=== PATIENT | female | born 1970 | race Caucasian/White ===

== ENCOUNTER 2022-04-11 10:23 | Emergency (ER) | payer BC, SELFPAY ==
[2022-04-11 10:34] VITALS: BP 146/103; PULSE 77; RESP 18; TEMP 36.8; O2SAT 99
--- NOTE | 2022-04-11 10:42 | ED.EXTPRO ---
HPI - Extremity Problem General Chief complaint: Extremity Problem,Nontraumatic Stated complaint: Rt Great Toe Pain Time Seen by Provider: 04/11/22 10:42 History of Present Illness HPI Narrative: Emilia Augustin is a 52 yo female with no PMH who comes with right great toe pain that started yesterday she has swelling on the solar part of toe, toe is edematous and red. No injury. has no pcp, no hx of gout; no allergies Related Data Home Medications Medication Instructions Recorded Confirmed cetirizine 10 mg tablet (Zyrtec) 10 mg PO DAILY 04/11/22 04/11/22 Allergies Allergy/AdvReac Type Severity Reaction Status Date / Time clindamycin [From Cleocin] AdvReac Mild Hives Verified 04/11/22 10:39 Penicillins AdvReac Mild Hives Verified 04/11/22 10:38 Review of Systems Review of Systems: CONSTITUTIONAL: Denies fever, chills, sweats. EYES: Denies visual changes, redness, discharge. ENT: Denies rhinorrhea, congestion, sore throat, otalgia. CARDIOVASCULAR: Denies chest pain, palpitations, edema. RESPIRATORY: Denies dyspnea, wheezing, cough GASTROINTESTINAL: Denies abdominal pain, nausea, vomiting, diarrhea. GENITOURINARY: Denies dysuria, hematuria, abnormal discharge SKIN: Denies rash or itching. NEUROLOGIC: Denies numbness, or focal weakness. PSYCHIATRIC: Denies anxiety or depression. Right great toe swelling and pain PMFSH Past Medical History Medical History No acute medical problems Social History Social History Smoking status: Never smoker Alcohol intake: current Comments At time of signature, I agree with nursing past medical, surgical, social and family history. There is no relevant family history pertinent to the presenting complaint. Blood pressure elevated patient is aware Exam Narrative: GENERAL: This is a well-nourished, well-developed patient, in mild distress. HEAD: normocephalic, atraumatic. EYES: PERRL. External ears normal, . Hearing grossly intact. NOSE: External nose normal without nasal discharge, nares without redness, no rhinorrhea. THROAT: Mucous membranes moist, NECK: Neck supple, non-tender CARDIOVASCULAR: Regular rate and rhythm without murmurs, gallops, or rubs. RESPIRATORY: Clear to auscultation. Breath sounds equal bilaterally. No wheezes, rales, or rhonchi. GASTROINTESTINAL: Not done SKIN: warm, intact with no suspicious lesions or rash, good texture and turgor. NEURO: awake, alert, and oriented to person, place and time. There were no obvious focal neurologic abnormalities. Steady gait EXTREMITIES: Normal range of motion. Right great toe swollen with an warm with redness, no injury BACK: Nontender without deformity Course Course Emergency Course: Patient here with right great toe swelling and pain started yesterday Started on colchicine and high-dose ibuprofen to elevate foot and use ice loosening shoes Level of Care: Express Care Visit Vital Signs Vital signs: Vital Signs Temperature 98.3 F 04/11/22 10:34 Pulse Rate 77 04/11/22 10:34 Respiratory Rate 18 04/11/22 10:34 Blood Pressure 146/103 H 04/11/22 10:34 Pulse Oximetry 99 04/11/22 10:34 Oxygen Delivery Room Air 04/11/22 10:34 Temperature 98.3 F 04/11/22 11:06 Pulse Rate 77 04/11/22 11:06 Respiratory Rate 18 04/11/22 11:06 Blood Pressure 132/90 04/11/22 11:10 Pulse Oximetry 99 04/11/22 11:06 Oxygen Delivery Room Air 04/11/22 11:06 Critical Care Time Critical Care Time Critical Care Time: No Discharge Plan Discharge Clinical Impression: Gout Patient Disposition: Home, Self-Care Condition: Stable Instructions: Gout (ED) Additional Instructions: Take ibuprofen 6 or milligrams every 6 hours for pain elevate foot and continue use ice and wear loose fitting shoe Take colchicine as directed Prescriptions: New colchicine 0.6 mg tablet 0.6 mg
[2022-04-11 11:00] VITALS: BP 132/90
[2022-04-11 11:06] VITALS: BP 146/103; PULSE 77; RESP 18; TEMP 36.8; O2SAT 99
[2022-04-11 11:10] VITALS: BP 132/90
== END 2022-04-11 11:02 | disposition home or self-care (01) ==
PROVIDERS: Emergency Provider Nurse Practitioner
DX: M10.9 Gout, unspecified (principal)
CPT/HCPCS: 99213; G0463